=== PATIENT | female | born 1985 | race Caucasian/White ===

== ENCOUNTER 2020-05-09 09:32 | Day surgery (SDC) | payer BC ==
[~2020-05-09] VITALS: Ht 165.1 cm; Wt 63.5 kg
[2020-05-09] VITALS (8 sets, daily range): BP systolic 11–113; BP diastolic 58–76
[~2020-05-09 09:32] MED LIST: HUMIRA40 MG/0.2 SUBQ; LIALDA1.2 GM ORAL; LR 1000ml 1,000 ML IVLG SCH
--- NOTE | 2020-05-09 10:25 | Anethesia Preoperative Eval ---
Anesthesia Pre-op PMH/ROS General Date of Evaluation: May 09, 2020 Time of Evaluation: 10:23 Anesthesiologist: Gerson ASA Score: ASA 2 Mallampati Score Class I : Soft palate, uvula, fauces, pillars visible Class II: Soft palate, uvula, fauces visible Class III: Soft palate, base of uvula visible Class IV: Only hard plate visible Mallampati Classification: Class II Surgeon: Alisha Diagnosis: Ulcerative colitis Surgical Procedure: Colonoscopy Anesthesia History: none Family History: no anesthesia problems Allergies: Coded Allergies: No Known Allergies (Unverified , 05/09/20) Medications: see eMAR Patient NPO?: Yes Past Medical History Cardiovascular: Denies: HTN, CAD, [place], valve dz, arrhythmia, other Pulmonary: Denies: asthma, COPD, RADHA, other Gastrointestinal/Genitourinary: Reports: GERD, other - UC; Denies: CRI, ESRD Neurologic/Psychiatric: Reports: depression/anxiety; Denies: dementia, CVA, TIA, other Endocrine: Denies: DM, hypothyroidism, steroids, other HEENT: Denies: cataract (L), cataract (R), glaucoma, RUBY (L), RUBY (R), other Hematology/Immune: Denies: anemia, DVT, bleeding disorder, other Musculoskeletal/Integumentary: Denies: OA, RA, DJD, DDD, edema, other PMH Narrative: as above PSxH Narrative: see H&P Anesthesia Pre-op Phys. Exam Physician Exam Last Vital Signs Date Time Temp Pulse Resp B/P (MAP) Pulse Ox O2 Delivery O2 Flow Rate FiO2 05/09/20 09:52 97.7 100 18 113/76 99 Room Air Constitutional: NAD Neurologic: CN 2-12 intact Cardiovascular: RRR, no M/R/G Respiratory: CTA Gastrointestinal: S/NT/ND Airway Exam Mallampati Score: Class II MO: full Neck: flexible ROM: full Teeth: intact Dentures: no upper, no lower Anesthesia Pre-op A/P Risk Assessment & Plan Assessment: ASA 2 Plan: Alejandro Cerda MD May 09, 2020 10:25
[2020-05-09] MEDS ORDERED: LR 1000ml 1,000 ML IVLG SCH (10:30)
[2020-05-09] MEDS ORDERED: fentaNYL 100 mcg/2 mL IV PRN (10:30)
[2020-05-09] MEDS ORDERED: Midazolam 2mg/2ml Inj ONE (10:51)
[2020-05-09] MEDS ORDERED: fentaNYL 100 mcg/2 mL IV ONE (10:52)
[2020-05-09] MEDS ORDERED: LR 1000ml ONE (11:00)
--- NOTE | 2020-05-09 11:16 | Pre-Procedure Note/Attestation ---
Pre-Procedure Note/Attestation Complete Prior to Procedure Planned Procedure: not applicable Procedure Narrative: colonoscopy Indications for Procedure Pre-Operative Diagnosis: UC Attestation I attest that I discussed the nature of the procedure; its benefits; risks and complications; and alternatives (and the risks and benefits of such alternatives), prior to the procedure, with the patient (or the patient's legal sales solutions representative). I attest that, if there was a reasonable possibility of needing a blood transfusion, the patient (or the patient's legal sales solutions representative) was given the [facility] standardized written summary, pursuant to the [place] Blood Safety Act ([place] Health and Safety Code # 1645, as amended). I attest that I re-evaluated the patient just prior to the surgery and that there has been no change in the patient's H&P, except as documented below: Tristen Macias MD May 09, 2020 11:16
--- NOTE | 2020-05-09 12:04 | Endoscopy Procedure Note ---
Endoscopy Procedure Note General Indication for Procedure: UC Procedures Performed: colonoscopy Operative Findings/Diagnosis: ulcers to 0 cm, pseudopolyps, one distal TI apthous Specimen: yes Pt Tolerated Procedure Well: Yes Estimated Blood Loss: none Anesthesia Anesthesiologist: Toro Anesthesia: MAC Medications Medication Given: see anesthesia record Inserted Devices Implant(s) used?: No GI Core Measures 50 yrs or older w/o bx or poly: Not Applicable 10yrs. F/U recommended: Not Applicable Tristen Macias MD May 09, 2020 12:04
--- NOTE | 2020-05-09 12:05 | Brief Operative Note ---
Immediate Post Operative Note Operative Note Chief Complaint: UC Pre-op Diagnosis: UC Procedure: colon Bx Post-op Diagnosis: ulcerated colon to 30 cm, pseudopolyps, one apthous in distal Ti Surgeon: ava Anesthesiologist: Toro Anesthesia: MAC Specimen: yes Complications: none Condition: stable Fluids: per anesthesia Estimated Blood Loss: none Drains: none Implant(s) used?: No Tristen Macias MD May 09, 2020 12:05
--- NOTE | 2020-05-09 12:06 | Short Stay Surgery H&P ---
History of Present Illness History of Present Illness Chief Complaint see H&P HPI Fabiola Roland is a 34 year old female who was admitted on for Ulcerative Colitis Patient History Allergies: Coded Allergies: No Known Allergies (Unverified , 05/09/20) Medication History Scheduled Adalimumab (Humira), 40 MG SUBQ Q7D, (Reported) Mesalamine (Lialda), 2.4 GM ORAL DAILY, (Reported) Physical Exam Vital Signs Last Vital Signs Date Time Temp Pulse Resp B/P (MAP) Pulse Ox O2 Delivery O2 Flow Rate FiO2 05/09/20 09:52 97.7 100 18 113/76 99 Room Air Labs Laboratory Tests Test 05/09/20 09:45 Urine HCG, Qualitative Negative (NEGATIVE) Plan Attestation Are the patient's medical conditions optimized for surgery? Tristen Macias MD May 09, 2020 12:06
--- NOTE | 2020-05-09 12:08 | Immediate Post-Op Evaluation ---
Immediate Post-Op Evalulation Immediate Post-Op Evalulation Procedure: Colonoscopy Date of Evaluation: May 09, 2020 Time of Evaluation: 12:07 IV Fluids: 1000 Blood Products: none Estimated Blood Loss: none Urinary Output: none Blood Pressure Systolic: 102 Blood Pressure Diastolic: 58 Pulse Rate: 84 Respiratory Rate: 18 O2 Sat by Pulse Oximetry: 99 Temperature (Fahrenheit): 97.8 Pain Score (1-10): 1 Nausea: No Vomiting: No Complications none Patient Status: awake, patent, none Hydration Status: adequate Alejandro Nieto MD May 09, 2020 12:08
--- NOTE | 2020-05-09 12:52 | 48 Hour Post Anesthesia Eval ---
Post Anesthesia Evaluation Procedure: Colonoscopy Date of Evaluation: May 09, 2020 Time of Evaluation: 12:51 Blood Pressure Systolic: 112 0: 56 Pulse Rate: 78 Respiratory Rate: 18 Temperature (Fahrenheit): 97.8 O2 Sat by Pulse Oximetry: 98 Airway: patent Nausea: No Vomiting: No Pain Intensity: 1 Hydration Status: adequate Cardiopulmonary Status: stable Mental Status/LOC: patient returned to baseline Follow-up Care/Observations: n/a Post-Anesthesia Complications: none Follow-up care needed: ready to discharge Alejandro Nieto MD May 09, 2020 12:52
--- NOTE | 2020-05-10 02:14 | Operative Note - Dictated ---
DATE OF OPERATION: 05/09/2020 GASTROENTEROLOGY PROCEDURE REPORT PROCEDURE: Colonoscopy with biopsy. SURGEON: Tristen Macias M.D. ANESTHESIA: Please see the separate anesthesiologist notes for details PRE-ENDOSCOPIC DIAGNOSIS: Ulcerative colitis. POST-ENDOSCOPIC DIAGNOSES: 1. Single aphthous ulcer in the distal terminal ileum about 3 cm from the ileocecal valve. 2. Active ulcerative colitis with circumferential ulcerations extending to the rectum to about 30 cm lazaro in the sigmoid area. 3. Numerous pseudopolyps throughout the colon. 4. Status post multiple biopsies as described below. DESCRIPTION OF PROCEDURE: The procedure, its risks, indications, alternatives, and possible complications were explained to the patient and informed consent was obtained. The patient was then sedated in the left lateral decubitus position and a diagnostic colonoscope was introduced into the rectum after rectal exam was done and advanced to the terminal ileum for about 20 cm. The colonoscope was then gradually withdrawn. The mucosa was examined carefully. Examination of the 20 cm of the terminal ileum showed only a single aphthous ulcer in the distal terminal ileum about 3 cm from the ileocecal valve. This lesion was only 2 to 3 mm in size. He was biopsied. Biopsies of the remaining normal terminal ileum were also sent separately to pathology for review. In the colon, there were numerous pseudopolyps seen throughout the colon, which were most small and typical in their appearance. Some of these in the sigmoid colon were biopsied and sent to pathology for review. The colon mucosa appeared to be circumferentially ulcerated starting to the rectum to about 30 cm in the mid to distal sigmoid area. From that point on, there appeared to be a non-ulcerated mucosa and with reasonably preserved vascular distribution. Biopsies of the proximal ascending colon, distal ascending colon, proximal transverse colon, distal transverse colon, descending colon, sigmoid colon, and rectum were sent to pathology separately for review. The colonoscope was removed. The patient was sent to recovery in good condition. COMPLICATIONS: None. ASSESSMENT: This patient is showing significant ulcerative colitis activity despite long-term treatment with every other week Humira and now for the past 8 weeks Humira with the level of of 14 and a recent course of steroids, which was just tapered off a week ago. This was concerning for nonresponder to anti-TNF class and the patient will be counseled next week for conversion to new class of biologic treatment such as as a next step. The significance of the aphthous ulcer in the distal terminal ileum is unclear as it was only a single lesion. However, biopsies of the remainder of the terminal ileum will be evaluated. The significance of this finding will be discussed with the patient. RECOMMENDATIONS: 1. Continue current management for now. 2. Follow up biopsy results. 3. Follow up next week discussion and management strategies. Tristen Macias M.D. DR: JASEN JOB#: [id number] CC: Tristen Macias M.D.; Fax#: [phone]
== END 2020-05-09 13:15 | disposition home or self-care (01) ==
LOC: GAS 09:32
DX: K51.90 Ulcerative colitis, unspecified, without complications (principal); K12.0 Recurrent oral aphthae; K63.5 Polyp of colon; Z79.899 Other long term (current) drug therapy; K21.9 Gastro-esophageal reflux disease without esophagitis; F32.9 Major depressive disorder, single episode, unspecified; F41.9 Anxiety disorder, unspecified
CPT/HCPCS: 45380; 81025; 94003; J2250; J2704; J3010; J7120; U0004; 94150